=== PATIENT | female | born 1955 | race Caucasian/White ===

== ENCOUNTER 2016-09-10 14:47 | Emergency (ER) | payer OTHER ==
[~2016-09-10] VITALS: Ht 165.1 cm; Wt 87.1 kg
[~2016-09-10 14:47] MED LIST: CARB100T2 PO; CITA-104 PO; OLAN20TA7 PO
[2016-09-10 14:51] VITALS: Ht 165.1 cm; Wt 87.1 kg
--- NOTE | 2016-09-10 15:16 | ERD ---
ER Documentation Chief Complaint Date/Time DATE: 09/10/16 TIME: 15:15 Chief Complaint wantas refill of ativan HPI Patient is a 60-year-old female who is here requesting medication refill on Ativan. She has no suicidal or homicidal ideations. She has no other complaints. ROS All systems reviewed and are negative except as per history of present illness. Medications Home Meds Reported Medications Citalopram Hydrobromide* (Citalopram Hydrobromide*) 40 Mg Tablet, 40 MG PO DAILY , #30 TAB 03/21/16 Olanzapine* (Olanzapine*) 20 Mg Tablet, 20 MG PO DAILY, #30 TAB 03/21/16 Carbamazepine* (Carbamazepine*) 100 Mg Tab.chew, 200 MG PO TID, #90 TAB.CHEW 03/21/16 Allergies Allergies: Coded Allergies: Penicillins (Verified Allergy, Unknown, 05/24/14) PMhx/Soc History of Surgery: Yes (fibroid in "ovarian tube") Hx Neurological Disorder: No Hx Respiratory Disorders: No Hx Cardiac Disorders: No Hx Psychiatric Problems: Yes (SCHITZOPHRENIA) Hx Miscellaneous Medical Probl: Yes (anxiety, ) Hx Alcohol Use: No Hx Substance Use: No Hx Tobacco Use: No FmHx Family History: No coronary disease, No diabetes, No other Physical Exam Vitals Vital Signs Date Time Temp Pulse Resp B/P Pulse Ox O2 Delivery O2 Flow Rate FiO2 09/10/16 14:51 98.1 80 20 127/71 99 Physical Exam Const: [] Head: Atraumatic Eyes: Normal Conjunctiva ENT: Normal External Ears, Nose and Mouth. Neck: Full range of motion..~ No meningismus. Resp: Clear to auscultation bilaterally Cardio: Regular rate and rhythm, no murmurs Abd: Soft, non tender, non distended. Normal bowel sounds Skin: No petechiae or rashes Back: No midline or flank tenderness Ext: No cyanosis, or edema Neur: Awake and alert Psych: Normal Mood and Affect Procedures/MDM Patient is a 60-year-old female who presents requesting Ativan refill. I explain to her the she needs to follow-up with her primary care doctor or the a refill of this medication and we would not be able to provide her medication refill for the emergency room.Recommended this patient follow up with her primary care doctor within 48 hours or return to the emergency room for any worsening of symptoms. However this time I do believe there is suitable for outpatient management. I answered all their questions and they agreed with the plan and were discharged home. Departure Diagnosis: Primary Impression: Encounter for medication refill Additional Impression: Anxiety Condition: Stable Patient Instructions: Anxiety Reaction Additional Instructions: Call your primary care doctor TOMORROW for an appointment during the next 1-2 days.See the doctor sooner or return here if your condition worsens before your appointment time. OUMOU ENG PA-C Sep 10, 2016 15:16
== END 2016-09-10 15:20 | disposition home or self-care (01) ==
LOC: E/R 14:47
DX: Z76.0 Encounter for issue of repeat prescription (principal); F41.9 Anxiety disorder, unspecified
CPT/HCPCS: 99281